=== PATIENT | female | born 1965 | race Caucasian/White ===

== ENCOUNTER 2020-11-20 19:10 | Emergency (ER) | payer OTHER ==
[~2020-11-20] VITALS: Ht 160 cm; Wt 67.0 kg
[2020-11-20] MEDS ORDERED: LISINOPRIL-HCT1 EAC2 (19:36)
[2020-11-20] MEDS ORDERED: ERTACZO60 GM (19:37)
[2020-11-20] MEDS ORDERED: SERTRALINE HCL25 MG (19:37)
[2020-11-20] MEDS ORDERED: CEPHALEXIN500 MG PO (21:19)
[2020-11-20] MEDS ORDERED: ZOFRAN4 MG PO (21:19)
[2020-11-20] MEDS ORDERED: POTASSIUM CHLO10 MEQ PO (21:19)
== END 2020-11-20 21:40 | disposition home or self-care (01) ==
LOC: ED 19:10
DX: K52.9 Noninfective gastroenteritis and colitis, unspecified (principal); K04.7 Periapical abscess without sinus; E87.6 Hypokalemia; F17.200 Nicotine dependence, unspecified, uncomplicated; Z88.5 Allergy status to narcotic agent; Z79.899 Other long term (current) drug therapy
CPT/HCPCS: 80053; 81001; 83690; 85025; 96374; 99284-25; J2405; J7030

== ENCOUNTER 2023-05-01 12:19 | Emergency (ER) | payer OTHER ==
[~2023-05-01] VITALS: Ht 160 cm; Wt 66.7 kg
[~2023-05-01 12:19] MED LIST: CEPHALEXIN500 MG PO; ERTACZO60 GM; LISINOPRIL-HCT1 EAC2; POTASSIUM CHLO10 MEQ PO; SERTRALINE HCL25 MG; ZOFRAN4 MG PO
[2023-05-01] MEDS ORDERED: SERTRALINE HCL100 MG PO (12:29)
[2023-05-01] MEDS ORDERED: ATORVASTATIN CA40 MG PO (12:29)
[2023-05-01] MEDS ORDERED: LISINOPRIL-HCT1 EACH PO (12:29)
[2023-05-01] MEDS ORDERED: LIDODERM1 EACH TOP (13:38)
[2023-05-01] MEDS ORDERED: ATIVAN1 MG PO (13:38)
[2023-05-01] MEDS ORDERED: NAPROSYN500 MG PO (13:38)
[2023-05-01 13:55] VITALS: BP 132/94
== END 2023-05-01 13:55 | disposition home or self-care (01) ==
LOC: ED 12:19
DX: M43.16 Spondylolisthesis, lumbar region (principal); M47.816 Spondylosis without myelopathy or radiculopathy, lumbar region; M47.817 Spondylosis without myelopathy or radiculopathy, lumbosacral region; F17.200 Nicotine dependence, unspecified, uncomplicated; Z88.5 Allergy status to narcotic agent; Z79.899 Other long term (current) drug therapy
CPT/HCPCS: 72100; 96372; 99283-25; J1885

== ENCOUNTER 2024-02-12 18:34 | Emergency (ER) | payer OTHER ==
[~2024-02-12] VITALS: Ht 160 cm; Wt 78.0 kg
[~2024-02-12 18:34] MED LIST changes: +ATIVAN1 MG PO; +ATORVASTATIN CA40 MG PO; +LIDODERM1 EACH TOP; +LISINOPRIL-HCT1 EACH PO; +NAPROSYN500 MG PO; +SERTRALINE HCL100 MG PO
[2024-02-12] MEDS ORDERED: LORazepam 1 MG TAB PO ONE (21:30)
[2024-02-12] MEDS ORDERED: XANAX0.5 MG PO (22:55)
[2024-02-12 23:10] VITALS: BP 133/94
== END 2024-02-12 23:10 | disposition home or self-care (01) ==
LOC: ED 18:34
DX: F43.22 Adjustment disorder with anxiety (principal); I10 Essential (primary) hypertension; F17.200 Nicotine dependence, unspecified, uncomplicated; Z79.899 Other long term (current) drug therapy; Z88.5 Allergy status to narcotic agent
CPT/HCPCS: 99283; A9270-GY

== ENCOUNTER 2024-08-25 16:08 | Emergency (ER) | payer OTHER ==
[~2024-08-25] VITALS: Ht 160 cm; Wt 57.2 kg
[~2024-08-25 16:08] MED LIST changes: +XANAX0.5 MG PO
[2024-08-25] MEDS ORDERED: CYCLOBENZAPRINE HCL 10 MG TAB PO ONE (16:45)
[2024-08-25] MEDS ORDERED: KETOROLAC TROMETHAMINE 15 MG/ML VIAL IM ONE (16:45)
[2024-08-25] MEDS ORDERED: MORPHINE SULFATE 4 MG/ML VIAL IM ONE (16:45)
[2024-08-25] MEDS ORDERED: CYCLOBENZAPRINE10 MG PO (18:41)
[2024-08-25 19:00] VITALS: BP 99/61
--- NOTE | 2024-08-26 10:12 | EKG ---
[facility] [address] [facility] [place] [address] Signed Marked sinus bradycardia with 1st degree AV block Abnormal ECG No previous ECGs available Confirmed by Ping Kumar MD ([id number]) on 08/26/2024 10:11:53 AM Electronically Signed By: PING KUMAR MD 08/26/241011 PATIENT NAME: SAFIA ELMORE Electrocardiogram DATE OF : 69 PHYSICIAN: PING KUMAR MD REPORT #: [id number] REPORT IS CONFIDENTIAL AND NOT TO BE RELEASED WITHOUT AUTHORIZATION
== END 2024-08-25 19:08 | disposition home or self-care (01) ==
LOC: ED 16:08
DX: M54.50 Low back pain, unspecified (principal); F17.200 Nicotine dependence, unspecified, uncomplicated; Z88.5 Allergy status to narcotic agent
CPT/HCPCS: 93005; 93010; 96372; 99283-25; J1885; J2270

== ENCOUNTER 2025-05-14 18:21 | Emergency (ER) | payer BC ==
[~2025-05-14] VITALS: Ht 160 cm; Wt 58.5 kg
[~2025-05-14 18:21] MED LIST changes: +CYCLOBENZAPRINE10 MG PO
[2025-05-14] MEDS ORDERED: PSEUDOEPHEDRINE HCL 30 MG TAB PO ONE (20:00)
[2025-05-14] MEDS ORDERED: CYCLOBENZAPRINE HCL 10 MG TAB PO ONE (20:00)
[2025-05-14] MEDS ORDERED: KETOROLAC TROMETHAMINE 60 MG/2 ML VIAL IM ONE (20:00)
[2025-05-14 21:23] LABS: INFLUENZA B NAA NEGATIVE (NEGATIVE); RESPIRATORY SYNCYTIAL VIR NAA NEGATIVE (NEGATIVE)
[2025-05-14] MEDS ORDERED: LEVOFLOXACIN500 MG PO (21:43)
[2025-05-14] MEDS ORDERED: levoFLOXacin 500 MG TAB PO ONE (21:45)
[2025-05-14] MEDS ORDERED: methylPREDNISolone 4 MG HOME.PACK PO ONE (21:45)
[2025-05-14] MEDS ORDERED: ALBUTEROL SULFATE 8 GM HOME.PACK INH ONE (21:45)
[2025-05-14] MEDS ORDERED: CYCLOBENZAPRINE HCL 10 MG HOME.PACK PO ONE (21:45)
[2025-05-14] MEDS ORDERED: CYCLOBENZAPRINE10 MG PO (21:48)
[2025-05-14 22:20] VITALS: BP 95/54
== END 2025-05-14 22:26 | disposition home or self-care (01) ==
LOC: ED 18:21
PROVIDERS: Family Medicine
DX: J42 Unspecified chronic bronchitis (principal); K02.9 Dental caries, unspecified; I10 Essential (primary) hypertension; Z90.710 Acquired absence of both cervix and uterus; F17.200 Nicotine dependence, unspecified, uncomplicated; Z88.5 Allergy status to narcotic agent; Z88.8 Allergy status to other drugs, medicaments and biological substances
CPT/HCPCS: 71045; 87502; 96374; 99283-25; A9270; J1885; U0002